=== PATIENT | female | born 1965 | race Caucasian/White ===

== ENCOUNTER → 2018-02-05 | Outpatient (CLI) | payer OTHER ==
[~2018-02-05] MED LIST: ALBU90OI INH; AMIT50 PO; AMLO5 PO; ASPI81CH PO; CEPH500 PO; CYCL10 PO; ERGO400 PO; FENO48 PO; GABA600 PO; HYDCHL25 PO; HYDR1TAB94 PO; Hair, Skin & N1 EACH PO; IBUP600 PO; LEVSOD150 PO; LISI20 PO; MELO7.5 PO; METCAR500 PO; METO100ER PO; Maxalt Mlt10 MG PO; PRAV20 PO; Percocet 10-321 EACH PO; Percocet 5-3251 EACH PO; Prozac20 MG PO; Silvadene20 GM TOP; TAMS.4ER PO; Valium5 MG PO; Zofran Odt4 MG PO
== END ==
LOC: LAB 10:22 → LAB SHORT 10:22
DX: N39.0 Urinary tract infection, site not specified (principal)
CPT/HCPCS: 87086

== ENCOUNTER 2018-02-12 16:54 | Emergency (ER) | payer OTHER ==
[~2018-02-12] VITALS: Ht 160 cm; Wt 163.3 kg
[2018-02-12] MEDS ORDERED: FURO40 PO (17:13)
[2018-02-12] MEDS ORDERED: POTCHL10ER PO (17:14)
[2018-02-12] MEDS ORDERED: Pyridium100 MG PO (17:14)
[2018-02-12] MEDS ORDERED: NITR100 (17:14)
[2018-02-12 17:46] LABS: BASOPHILS ABSOLUTE AUTO 0.07 K/mm3 (0.00-0.23); BASOPHILS PERCENT AUTO 1 % (0-2); EOSINOPHILS ABSOLUTE AUTO 0.37 K/mm3 (0.00-0.68); EOSINOPHILS PERCENT AUTO 4 % (0-6); Hematocrit 43.2 % (33.0-51.0); Hemoglobin 14.4 g/dL (11.5-16.0); IMMATURE GRAN ABSOLUTE AUTO 0.03 K/mm3 (0.00-0.10); IMMATURE GRAN PERCENT AUTO 0 % (0-1); LYMPHOCYTES ABSOLUTE AUTO 2.24 K/mm3 (0.84-5.20); LYMPHOCYTES PERCENT AUTO 21 % (21-46); MONOCYTES ABSOLUTE AUTO 0.94 K/mm3 (0.16-1.47); MONOCYTES PERCENT AUTO 9 % (4-13); Mean Corpuscular HGB 32.7 pg (26.0-34.0); Mean Corpuscular HGB Conc 33.3 g/dL (31.5-36.5); Mean Corpuscular Volume 98 fL (80-100); Mean Platelet Volume 9.7 fL (9.1-12.4); NEUTROPHILS ABSOLUTE AUTO 6.82 K/mm3 (1.96-9.15); NEUTROPHILS PERCENT AUTO 65 % (41-73); Platelet Count 303 K/mm3 (150-400); RDW Coefficient Variation 13.1 % (11.7-14.2); RDW Standard Deviation 47.7 fL (35.1-46.3); Red Blood Cell Count 4.41 M/mm3 (3.80-5.20); White Blood Cell Count 10.47 K/mm3 (4.00-11.30)
[2018-02-12 18:19] LABS: Albumin, Blood 3.8 g/dL (3.4-5.0); Bilirubin, Total 0.8 mg/dL (0.1-1.0); Bun/Creatinine Ratio 14.1 (12.0-20.0); Calcium, Blood 9.8 mg/dL (8.5-10.1); Creatinine, Blood 1.35 mg/dL (0.40-1.00); Globulin, Blood 3.9 g/dL (2.2-4.0); Total Protein, Blood 7.7 g/dL (6.4-8.2)
[2018-02-12 19:30] LABS: Source, Urine Clean Catch
[2018-02-12 19:39] LABS: Bilirubin, Urine Neg (Neg); Blood, Urine 4+ (Neg); Glucose Qualitative, Urine Neg (Neg); Ketones, Urine Neg (Neg); Leukocyte Esterase, Urine 3+ (Neg); Nitrite, Urine Pos (Neg); Protein, Urine Neg (Neg); Urobilinogen, Urine NORM (Normal)
[2018-02-12 19:50] LABS: Appearance, Urine Clear (Clear); Color, Urine Yellow (P-Yellow)
[2018-02-12 19:51] LABS: Bacteria Few /hpf; Red Blood Cells, Urine 25-50 /hpf (0-2); Squamous Epithelial Cells Few /hpf (Few)
== END 2018-02-12 21:27 | disposition short-term general hospital (02) ==
LOC: ER 16:54
PROVIDERS: Emergency Medicine; Internal Medicine
DX: N39.0 Urinary tract infection, site not specified (principal); N13.2 Hydronephrosis with renal and ureteral calculous obstruction; Z91.040 Latex allergy status; Z88.0 Allergy status to penicillin; Z91.048 Other nonmedicinal substance allergy status; Z88.8 Allergy status to other drugs, medicaments and biological substances; Z79.899 Other long term (current) drug therapy; I10 Essential (primary) hypertension; E03.9 Hypothyroidism, unspecified; Z87.891 Personal history of nicotine dependence
CPT/HCPCS: 36415; 74176; 80053; 81001; 83690; 85025; 87086; 96365; 96375; 96376; 99285-25; J0744; J1885; J2405; J3010

== ENCOUNTER 2018-08-30 13:00 | Emergency (ER) | payer OTHER ==
[~2018-08-30] VITALS: Ht 160 cm; Wt 152.9 kg
[~2018-08-30 13:00] MED LIST changes: +FURO40 PO; +NITR100; +POTCHL10ER PO; +Pyridium100 MG PO
[2018-08-30] MEDS ORDERED: Percocet 7.5-31 EACH PO (14:44)
[2018-08-30] MEDS ORDERED: ONDA4ODT MM (14:44)
== END 2018-08-30 14:50 | disposition home or self-care (01) ==
LOC: ER 13:00
DX: I10 Essential (primary) hypertension (principal); R51 Headache; E03.9 Hypothyroidism, unspecified; E78.5 Hyperlipidemia, unspecified; Z87.891 Personal history of nicotine dependence; Z79.899 Other long term (current) drug therapy
CPT/HCPCS: 70450; 96372; 99284-25; J0780; J1885; Q0163

== ENCOUNTER 2019-02-15 06:06 | Emergency (ER) | payer OTHER ==
[~2019-02-15] VITALS: Ht 160 cm; Wt 149.7 kg
[~2019-02-15 06:06] MED LIST changes: +ONDA4ODT MM; +Percocet 7.5-31 EACH PO
[2019-02-15 08:13] LABS: BASOPHILS ABSOLUTE AUTO 0.04 K/mm3 (0.00-0.23); BASOPHILS PERCENT AUTO 0 % (0-2); EOSINOPHILS ABSOLUTE AUTO 0.06 K/mm3 (0.00-0.68); EOSINOPHILS PERCENT AUTO 1 % (0-6); Hematocrit 46.4 % (33.0-51.0); Hemoglobin 15.1 g/dL (11.5-16.0); IMMATURE GRAN ABSOLUTE AUTO 0.05 K/mm3 (0.00-0.10); IMMATURE GRAN PERCENT AUTO 0 % (0-1); LYMPHOCYTES ABSOLUTE AUTO 1.41 K/mm3 (0.84-5.20); LYMPHOCYTES PERCENT AUTO 11 % (21-46); MONOCYTES ABSOLUTE AUTO 0.54 K/mm3 (0.16-1.47); MONOCYTES PERCENT AUTO 4 % (4-13); Mean Corpuscular HGB 31.3 pg (26.0-34.0); Mean Corpuscular HGB Conc 32.5 g/dL (31.5-36.5); Mean Corpuscular Volume 96 fL (80-100); Mean Platelet Volume 10.3 fL (9.1-12.4); NEUTROPHILS ABSOLUTE AUTO 10.97 K/mm3 (1.96-9.15); NEUTROPHILS PERCENT AUTO 84 % (41-73); Platelet Count 300 K/mm3 (150-400); RDW Coefficient Variation 12.7 % (11.7-14.2); RDW Standard Deviation 45.7 fL (35.1-46.3); Red Blood Cell Count 4.82 M/mm3 (3.80-5.20); White Blood Cell Count 13.07 K/mm3 (4.00-11.30)
[2019-02-15 08:46] LABS: Alanine Aminotransfer (ALT/SGP 35 U/L (12-78); Albumin, Blood 4.1 g/dL (3.4-5.0); Alk Phos 77 U/L (50-136); Anion Gap 7 mmol/L (6-16); Aspartate Aminotrans (AST/SGOT 30 U/L (12-37); Bilirubin, Total 0.5 mg/dL (0.1-1.0); Blood Urea Nitrogen 18 mg/dL (8-24); CO2, Blood 24 mmol/L (21-32); Calcium, Blood 9.3 mg/dL (8.5-10.1); Chloride, Blood 107 mmol/L (98-108); Globulin, Blood 4.2 g/dL (2.2-4.0); Glomerular Filtration Rate >60 (60-); Glucose, Blood 132 mg/dL (70-99); Potassium, Blood 3.9 mmol/L (3.5-5.5); Sodium, Blood 138 mmol/L (136-145); Total Protein, Blood 8.3 g/dL (6.4-8.2)
[2019-02-15 10:27] LABS: Source, Urine Clean Catch
[2019-02-15 10:30] LABS: Bilirubin, Urine Neg (Neg); Blood, Urine 1+ (Neg); Glucose Qualitative, Urine Neg (Neg); Ketones, Urine Neg (Neg); Leukocyte Esterase, Urine 2+ (Neg); Nitrite, Urine Neg (Neg); Protein, Urine Neg (Neg); Specific Gravity, Urine 1.015 (1.003-1.022); Urobilinogen, Urine NORM (Normal); pH, Urine 6.5 (5.0-8.0)
[2019-02-15 10:33] LABS: Appearance, Urine Clear (Clear); Color, Urine Yellow (P-Yellow)
[2019-02-15 10:39] LABS: Bacteria Few /hpf; Squamous Epithelial Cells Few /hpf (Few)
== END 2019-02-15 13:20 | disposition short-term general hospital (02) ==
LOC: ER 06:06
PROVIDERS: Emergency Medicine
DX: N13.2 Hydronephrosis with renal and ureteral calculous obstruction (principal); Z88.0 Allergy status to penicillin; Z91.040 Latex allergy status; Z88.8 Allergy status to other drugs, medicaments and biological substances; Z79.899 Other long term (current) drug therapy; I10 Essential (primary) hypertension; E03.9 Hypothyroidism, unspecified; E78.5 Hyperlipidemia, unspecified; Z87.891 Personal history of nicotine dependence
CPT/HCPCS: 36415; 74176; 80053; 81001; 83690; 85025; 87086; 96374; 96375; 96376; 99285-25; J1170; J1885; J2405

== ENCOUNTER 2019-02-21 18:02 | Emergency (ER) | payer OTHER ==
[~2019-02-21] VITALS: Ht 160 cm; Wt 149.7 kg
[2019-02-21 18:41] LABS: BASOPHILS ABSOLUTE AUTO 0.07 K/mm3 (0.00-0.23); BASOPHILS PERCENT AUTO 1 % (0-2); EOSINOPHILS ABSOLUTE AUTO 0.35 K/mm3 (0.00-0.68); EOSINOPHILS PERCENT AUTO 5 % (0-6); Hematocrit 40.9 % (33.0-51.0); Hemoglobin 13.4 g/dL (11.5-16.0); IMMATURE GRAN ABSOLUTE AUTO 0.02 K/mm3 (0.00-0.10); IMMATURE GRAN PERCENT AUTO 0 % (0-1); LYMPHOCYTES ABSOLUTE AUTO 2.87 K/mm3 (0.84-5.20); LYMPHOCYTES PERCENT AUTO 38 % (21-46); MONOCYTES ABSOLUTE AUTO 0.65 K/mm3 (0.16-1.47); MONOCYTES PERCENT AUTO 9 % (4-13); Mean Corpuscular HGB 31.7 pg (26.0-34.0); Mean Corpuscular HGB Conc 32.8 g/dL (31.5-36.5); Mean Corpuscular Volume 97 fL (80-100); Mean Platelet Volume 10.2 fL (9.1-12.4); NEUTROPHILS ABSOLUTE AUTO 3.69 K/mm3 (1.96-9.15); NEUTROPHILS PERCENT AUTO 48 % (41-73); Platelet Count 310 K/mm3 (150-400); RDW Coefficient Variation 12.9 % (11.7-14.2); RDW Standard Deviation 46.4 fL (35.1-46.3); Red Blood Cell Count 4.23 M/mm3 (3.80-5.20); White Blood Cell Count 7.65 K/mm3 (4.00-11.30)
[2019-02-21 18:42] LABS: Source, Urine Clean Catch
[2019-02-21 18:45] LABS: Bilirubin, Urine Neg (Neg); Blood, Urine 5+ (Neg); Glucose Qualitative, Urine Neg (Neg); Ketones, Urine Neg (Neg); Leukocyte Esterase, Urine 3+ (Neg); Nitrite, Urine Neg (Neg); Protein, Urine 3+ (Neg); Urobilinogen, Urine NORM (Normal)
[2019-02-21 18:59] LABS: Alanine Aminotransfer (ALT/SGP 21 U/L (12-78); Albumin, Blood 3.5 g/dL (3.4-5.0); Alk Phos 66 U/L (50-136); Anion Gap 6 mmol/L (6-16); Aspartate Aminotrans (AST/SGOT 23 U/L (12-37); Bilirubin, Total 0.4 mg/dL (0.1-1.0); Blood Urea Nitrogen 22 mg/dL (8-24); Bun/Creatinine Ratio 22.1 (12.0-20.0); CO2, Blood 27 mmol/L (21-32); Calcium, Blood 8.9 mg/dL (8.5-10.1); Chloride, Blood 108 mmol/L (98-108); Globulin, Blood 3.5 g/dL (2.2-4.0); Glomerular Filtration Rate >60 (60-); Glucose, Blood 86 mg/dL (70-99); Potassium, Blood 3.9 mmol/L (3.5-5.5); Sodium, Blood 141 mmol/L (136-145)
[2019-02-21 19:04] LABS: Appearance, Urine Cloudy (Clear); Color, Urine Yellow (P-Yellow)
[2019-02-21 19:10] LABS: Red Blood Cells, Urine TNTC /hpf (0-2)
[2019-02-21 19:11] LABS: Bacteria Few /hpf; Squamous Epithelial Cells Few /hpf (Few)
== END 2019-02-21 20:51 | disposition home or self-care (01) ==
LOC: ER 18:02
PROVIDERS: Physician Assistant
DX: R10.9 Unspecified abdominal pain (principal); Z91.040 Latex allergy status; Z88.0 Allergy status to penicillin; Z91.048 Other nonmedicinal substance allergy status; Z88.8 Allergy status to other drugs, medicaments and biological substances; Z79.899 Other long term (current) drug therapy; I10 Essential (primary) hypertension; E03.9 Hypothyroidism, unspecified; Z87.891 Personal history of nicotine dependence
CPT/HCPCS: 36415; 80053; 81001; 85025; 87086; 96374; 96375; 99284-25; A9270; J1885; J2405

== ENCOUNTER → 2019-03-06 | Outpatient (CLI) | payer OTHER ==
[2019-03-06 14:10] LABS: Source, Urine Voided
[2019-03-06 14:24] LABS: Bilirubin, Urine Neg (Neg); Blood, Urine 5+ (Neg); Glucose Qualitative, Urine Neg (Neg); Ketones, Urine 1+ (Neg); Leukocyte Esterase, Urine 3+ (Neg); Nitrite, Urine Neg (Neg); Protein, Urine 4+ (Neg); Urobilinogen, Urine NORM (Normal)
[2019-03-06 14:31] LABS: Appearance, Urine Bloody (Clear); Color, Urine Red (P-Yellow)
[2019-03-06 14:33] LABS: Bacteria Many /hpf; Red Blood Cells, Urine TNTC /hpf (0-2); Squamous Epithelial Cells Few /hpf (Few); White Blood Cells, Urine 50-100 /hpf (0-5)
== END ==
LOC: LAB 14:08 → LAB SHORT 14:08
PROVIDERS: Nurse Practitioner Family
DX: R30.0 Dysuria (principal)
CPT/HCPCS: 81001; 87086

== ENCOUNTER 2019-12-08 15:02 | Observation (INO) | payer OTHER ==
[~2019-12-08] VITALS: Ht 160 cm; Wt 151.0 kg
[~2019-12-08 15:02] MED LIST changes: -ALBU90OI INH; -AMLO5 PO; -ERGO400 PO; -FENO48 PO; -FURO40 PO; -LEVSOD150 PO; -LISI20 PO; -MELO7.5 PO; -METO100ER PO; -Maxalt Mlt10 MG PO; -POTCHL10ER PO; -PRAV20 PO; -Prozac20 MG PO
[2019-12-08 15:44] LABS: PCO2 Arterial 35.6 mmHg (35-45); PO2 Arterial 81.3 mmHg (80-100); pH Blood Arterial 7.44 (7.35-7.45)
[2019-12-08 16:00] LABS: BASOPHILS ABSOLUTE AUTO 0.06 K/mm3 (0.00-0.23); BASOPHILS PERCENT AUTO 1 % (0-2); EOSINOPHILS ABSOLUTE AUTO 0.32 K/mm3 (0.00-0.68); EOSINOPHILS PERCENT AUTO 5 % (0-6); Hematocrit 41.8 % (33.0-51.0); IMMATURE GRAN ABSOLUTE AUTO 0.02 K/mm3 (0.00-0.10); IMMATURE GRAN PERCENT AUTO 0 % (0-1); LYMPHOCYTES ABSOLUTE AUTO 2.08 K/mm3 (0.84-5.20); LYMPHOCYTES PERCENT AUTO 30 % (21-46); MONOCYTES ABSOLUTE AUTO 0.79 K/mm3 (0.16-1.47); MONOCYTES PERCENT AUTO 11 % (4-13); Mean Corpuscular HGB 32.1 pg (26.0-34.0); Mean Corpuscular HGB Conc 33.5 g/dL (31.5-36.5); Mean Corpuscular Volume 96 fL (80-100); Mean Platelet Volume 10.8 fL (9.1-12.4); NEUTROPHILS ABSOLUTE AUTO 3.75 K/mm3 (1.96-9.15); NEUTROPHILS PERCENT AUTO 53 % (41-73); Platelet Count 265 K/mm3 (150-400); RDW Coefficient Variation 11.9 % (11.7-14.2); RDW Standard Deviation 41.5 fL (35.1-46.3); Red Blood Cell Count 4.36 M/mm3 (3.80-5.20); White Blood Cell Count 7.02 K/mm3 (4.00-11.30)
[2019-12-08 16:34] LABS: Alanine Aminotransfer (ALT/SGP 75 U/L (12-78); Albumin, Blood 3.2 g/dL (3.4-5.0); Albumin/Globulin Ratio 0.8 (0.8-1.8); Alk Phos 67 U/L (50-136); Anion Gap 4 mmol/L (6-16); Aspartate Aminotrans (AST/SGOT 73 U/L (12-37); Bilirubin, Total 0.6 mg/dL (0.1-1.0); Blood Urea Nitrogen 19 mg/dL (8-24); CO2, Blood 25 mmol/L (21-32); Calcium, Blood 8.3 mg/dL (8.5-10.1); Chloride, Blood 112 mmol/L (98-108); Globulin, Blood 3.9 g/dL (2.2-4.0); Glomerular Filtration Rate >60 (60-); Glucose, Blood 78 mg/dL (70-99); Potassium, Blood 3.8 mmol/L (3.5-5.5); Sodium, Blood 141 mmol/L (136-145); Total Protein, Blood 7.1 g/dL (6.4-8.2); Troponin I <0.015 ng/mL (0.000-0.040)
[2019-12-08] MEDS ORDERED: ALBU90OI INH (17:46)
[2019-12-08] MEDS ORDERED: ESTRADIOL2 MG PO (17:47)
[2019-12-08] MEDS ORDERED: Aspir 8181 MG PO (17:47)
[2019-12-08] MEDS ORDERED: FLUOXETINE HCL60 MG PO (17:48)
[2019-12-08] MEDS ORDERED: FENO48 PO (17:48)
[2019-12-08] MEDS ORDERED: LEVSOD100 PO (17:48)
[2019-12-08] MEDS ORDERED: Neurontin400 MG PO ×2 (17:49→19:38)
[2019-12-08] MEDS ORDERED: LIOT5 PO (17:50)
[2019-12-08] MEDS ORDERED: ZESTRIL40 M2 PO (17:50)
[2019-12-08] MEDS ORDERED: Clear-Atadine10 MG PO (17:51)
[2019-12-08] MEDS ORDERED: METO100 PO (17:51)
[2019-12-08 17:52] LABS: International Normalized Ratio 0.97; Prothrombin Time Results 10.4 Sec (9.7-11.5)
[2019-12-08] MEDS ORDERED: MELO7.5 PO (17:52)
[2019-12-08] MEDS ORDERED: Pravachol40 MG PO (17:52)
[2019-12-08] MEDS ORDERED: VITAMIN D-32000 UNIT PO (17:52)
[2019-12-08] MEDS ORDERED: PROG100 PO (17:53)
[2019-12-08] MEDS ORDERED: AMLO5 PO (17:54)
[2019-12-08] MEDS ORDERED: FURO40 PO (17:54)
[2019-12-08] MEDS ORDERED: Flovent 110 MCG12 GM INH (17:55)
[2019-12-08] MEDS ORDERED: POTCHL20ER PO (17:55)
[2019-12-08] MEDS ORDERED: METFORMIN HCL500 M2 PO (17:56)
[2019-12-08] MEDS ORDERED: RIZATRIPTAN10 M3 PO (17:58)
[2019-12-08] MEDS ORDERED: TOPI25 PO (17:58)
[2019-12-08] MEDS ORDERED: Zanaflex4 MG PO (18:03)
[2019-12-09 01:34] LABS: Anion Gap 7 mmol/L (6-16); Blood Urea Nitrogen 16 mg/dL (8-24); Bun/Creatinine Ratio 20.2 (12.0-20.0); CO2, Blood 25 mmol/L (21-32); Calcium, Blood 8.5 mg/dL (8.5-10.1); Chloride, Blood 107 mmol/L (98-108); Creatinine, Blood 0.79 mg/dL (0.40-1.00); Glomerular Filtration Rate >60 (60-); Glucose, Blood 128 mg/dL (70-99); Potassium, Blood 3.7 mmol/L (3.5-5.5); Sodium, Blood 139 mmol/L (136-145)
--- NOTE | 2019-12-09 06:33 | NUR ---
SHIFT SUMMARY. ED ADMIT AT 2200./ STEPPED ONTO FLOOR AND ASSIST SELT TO BED. NO SOB AT THAT TIME. RA SAT WNL. DENIES CP OR EXERTIONAL DISCOMFORT. DIM BASES AND CLEAR LUNGS. REVIEWED SAFETY MEASURES AND TO CALL WHEN UP TO BR. REPORTS SEVERE HENRANDEZ AND TYLENLO NOT EFFECTVE. PLACED CALL TO GET IV PAIN MED DUE TO EXTREME NAUSEA. MED ORDERED FOR BOTH. SUBSIDING SLOWLY. X 1 RIGHT AFTER GIVEN , 50 ML OF YELLOW FLUID. LATER TOLERATED A FEW CHEERIOS. AND NO FURTHER NAUSEA. LATER REQUIRED 25 MCG. FOR HERNANDEZ ALTHOUGH SOME IMPROVEMENT. FINAL DOSE. REQUESTS MUSCLE RELAXER AND OFF TO SLEEP BY 0130. BP IMPROVED, SINCE ABLE TO TAKE PO MEDS FOR HTN. SR/ SB. NO FURTHER GI DISTRESS , SLEEPING SOUNDLY. REPORTS WEARING CPAP AT HER HOME FOR SLEEP AND REFUSED HOSPITAL CPAP AND FAMILY WILL BRING IN,. PLACED O2 ONAT 2L AND CONT SAT WNL
--- NOTE | 2019-12-09 08:20 | NUR ---
PCU DAYSHIFT - ASSUMED CARE PATIENT ALERT AND ORIENTED X4. RESP E/U AT REST ON 2 LPM NC WITH SP02 95%. PATIENT SBA TO BATHROOM - TOLERATES WELL. HEPARIN GTT RUNNING PER EMAR - VERIFIED DURING IN ROOM REPORT WITH ANTONIETTA NELSON IN TO SEE PATIENT AND PATIENT PLACED ON ISOLATION FOR COVID R/O. COVID SAMPLE OBTAINED AND SENT TO LAB. VSS. WILL CONTINUE TO MONITOR.
--- NOTE | 2019-12-09 18:37 | NUR ---
PCU DAYSHIFT SUMMARY PATIENT REMAINS ALERT AND ORIENTED X4 T/O SHIFT. INDEPENDENT IN ROOM. VSS. PATIENT ON ROOM AIR. COVID R/O SENT TO LAB. RESP E/U AT REST. NO ACUTE EVENTS NOTED. PATIENT REMAINED IN SINUS BLAS T/O SHIFT WITH RATE 48-62. HYPERTENSION NOTED - SEE PRN HTN'S MEDICATIONS. PATIENT REPORTS THAT SHE HAS CHRONIC PAIN AND CHRONIC HEADACHES AT HOME -TREATED PER EMAR. PATIENT AMBULATES WELL WITH STEADY GAIT. WILL CONTINUE TO MONITOR AND REPORT TO NOC SHIFT RN. CALL LIGHT W/I REACH. HEPARIN GTT RUNNING PER EMAR FOR PE'S.
--- NOTE | 2019-12-09 22:42 | NUR ---
aPTT 59.5 CALLED TO PHARMACY. NO NEW CHANGES AT THIS TIME.
--- NOTE | 2019-12-10 06:22 | NUR ---
SHIFT SUMMARY: PT AWAKE MOST OF NOC. VSS. ASYMPTOMATIC BRADYCARDIA. PT WITH NO COMPLAINTS EXCEPT FOR HER CONSTANT HEADACHE. PT FINALLY FELL ASLEEP APPRX 1 HOUR AGO BUT AWAKENS EASILY TO RN AT BEDSIDE. PT NOW RESTING. HEPARIN gtt CONTINUES AT 16.5 u/kg/hr. NEXT aPTT NOTED TO BE AT 1100 THIS AM. PT CALL LIGHT WITHIN REACH. WILL CONTINUE TO MONITOR. WILL REPORT OFF TO ONCOMING RN.
[2019-12-10 09:22] LABS: Bun/Creatinine Ratio 22.9 (12.0-20.0); Calcium, Blood 8.5 mg/dL (8.5-10.1); Creatinine, Blood 1.09 mg/dL (0.40-1.00); Potassium, Blood 3.9 mmol/L (3.5-5.5)
[2019-12-10] MEDS ORDERED: FURO40 PO (13:13)
[2019-12-10] MEDS ORDERED: PANT40 PO (13:13)
[2019-12-10] MEDS ORDERED: Klor-Con M1010 MEQ PO (13:14)
[2019-12-10] MEDS ORDERED: XARELTO15 MG PO (13:15)
--- NOTE | 2019-12-10 16:48 | NUR ---
DISCHARGE SUMMARY PT A&Ox4; CALM AND COOPERATIVE WITH CARE. PT RESTING IN BED DURING SHIFT. UP IND TO BATHROOM. PT DENIES PAIN; CHEST PAIN/PRESSURE; SOB AT REST OR WITH ACTIVITY; NASUEA AND DIZZINESS. PT ON HEPARIN GTT; TRANSITIONED TO XRAELTO THIS AFTERNOON. PT SINUS TO SINUS BLAS; ASSYMPTOMATIC. VSS. NO OTHER ACUTE CHANGES NOTED DURING SHIFT. PT EDUCATED ON COVID-19 ISOLATION; TO STAY HOME AND ISOLATED AWAY FROM OTHERS IN HOUSE HOLD. PT EDUCATED ON DISCHARGE INSTRUCTIONS, MEDICATIONS AND FOLLOW UP APPOINTMENTS. PRESCRIPTIONS CALLED INTO [facility] PER PT REQUEST. PT LEFT ROOM VIA WHEEL CHAIR AT 1540. PT PROVIDED WITH XARELTO COUPON PER SPARE HAND CARDING
--- NOTE | 2019-12-11 10:30 | NUR ---
LAB CALLED AND NOTIFIED THIS RN THAT COVID SAMPLE WAS REJECTED. DR NELSON NOT ON SERVICE TODAY. CALL TO PT'S PCP BRIAN POLLACK AT [facility] AND LEFT MESSAGE WITH TRAFFIC OFFICER THAT COVID SAMPLE WAS REJECTED AND PT WOULD NEED TO BE RE-TESTED IF INDICATED.
== END 2019-12-10 15:45 | disposition home or self-care (01) ==
LOC: ER 15:02 → PCU 15:03
PROVIDERS: Emergency Medicine; ADMIT Internal Medicine
DX: I26.99 Other pulmonary embolism without acute cor pulmonale (principal); J96.01 Acute respiratory failure with hypoxia; I16.0 Hypertensive urgency; E03.9 Hypothyroidism, unspecified; E66.01 Morbid (severe) obesity due to excess calories; I10 Essential (primary) hypertension; E78.5 Hyperlipidemia, unspecified; Z91.040 Latex allergy status; Z88.0 Allergy status to penicillin; Z88.8 Allergy status to other drugs, medicaments and biological substances; Z79.82 Long term (current) use of aspirin; Z79.899 Other long term (current) drug therapy; Z79.84 Long term (current) use of oral hypoglycemic drugs
CPT/HCPCS: 36415; 36600; 71046; 71260; 80048; 80053; 81240; 81241; 82803; 83880; 84484; 85025; 85300; 85303; 85306; 85379; 85610; 85730; 93005; 93010; 93306; 93970; 94640; 94664; 94760; 94762; 96365-59; 96375; 96375-59; 96376; 99285-25; A9270; A9270-GY; G0378; J0360; J1644; J1940; J2405; J2765; J3010; Q9967

== ENCOUNTER 2019-12-15 09:54 | Inpatient (IN) | payer OTHER ==
[~2019-12-15] VITALS: Ht 160 cm; Wt 146.3 kg
[~2019-12-15 09:54] MED LIST changes: +ALBU90OI INH; +AMLO5 PO; +Aspir 8181 MG PO; +Clear-Atadine10 MG PO; +ESTRADIOL2 MG PO; +FENO48 PO; +FLUOXETINE HCL60 MG PO; +FURO40 PO; +Flovent 110 MCG12 GM INH; +Klor-Con M1010 MEQ PO; +LEVSOD100 PO; +LIOT5 PO; +MELO7.5 PO; +METFORMIN HCL500 M2 PO; +METO100 PO; +Neurontin400 MG PO; +PANT40 PO; +POTCHL20ER PO; +PROG100 PO; +Pravachol40 MG PO; +RIZATRIPTAN10 M3 PO; +TOPI25 PO; +VITAMIN D-32000 UNIT PO; +XARELTO15 MG PO; +ZESTRIL40 M2 PO; +Zanaflex4 MG PO
[2019-12-15 11:06] LABS: BASOPHILS ABSOLUTE AUTO 0.08 K/mm3 (0.00-0.23); BASOPHILS PERCENT AUTO 1 % (0-2); EOSINOPHILS PERCENT AUTO 1 % (0-6); Hematocrit 36.7 % (33.0-51.0); Hemoglobin 11.7 g/dL (11.5-16.0); IMMATURE GRAN ABSOLUTE AUTO 0.06 K/mm3 (0.00-0.10); IMMATURE GRAN PERCENT AUTO 1 % (0-1); LYMPHOCYTES ABSOLUTE AUTO 1.99 K/mm3 (0.84-5.20); LYMPHOCYTES PERCENT AUTO 17 % (21-46); MONOCYTES ABSOLUTE AUTO 0.74 K/mm3 (0.16-1.47); MONOCYTES PERCENT AUTO 6 % (4-13); Mean Corpuscular HGB 31.5 pg (26.0-34.0); Mean Corpuscular HGB Conc 31.9 g/dL (31.5-36.5); NEUTROPHILS ABSOLUTE AUTO 8.87 K/mm3 (1.96-9.15); NEUTROPHILS PERCENT AUTO 75 % (41-73); Platelet Count 301 K/mm3 (150-400); RDW Coefficient Variation 12.1 % (11.7-14.2); RDW Standard Deviation 44.1 fL (35.1-46.3); Red Blood Cell Count 3.71 M/mm3 (3.80-5.20); White Blood Cell Count 11.84 K/mm3 (4.00-11.30)
[2019-12-15 11:15] LABS: Mean Corpuscular Volume 99 fL (80-100)
[2019-12-15 11:21] LABS: International Normalized Ratio 1.17; Prothrombin Time Results 12.4 Sec (9.7-11.5)
[2019-12-15 11:25] LABS: Albumin, Blood 3.2 g/dL (3.4-5.0); Albumin/Globulin Ratio 0.8 (0.8-1.8); Bilirubin, Total 0.4 mg/dL (0.1-1.0); Bun/Creatinine Ratio 72.6 (12.0-20.0); Calcium, Blood 8.8 mg/dL (8.5-10.1); Creatinine, Blood 1.13 mg/dL (0.40-1.00); Potassium, Blood 5.2 mmol/L (3.5-5.5); Total Protein, Blood 7.2 g/dL (6.4-8.2)
[2019-12-15] MEDS ORDERED: SPIRONOLACTONE25 MG PO (12:24)
[2019-12-15] MEDS ORDERED: Coumadin5 MG PO (12:25)
[2019-12-15] MEDS ORDERED: ENOXAPARIN150 MG/1 M SC (12:27)
--- NOTE | 2019-12-15 14:28 | NUR ---
pt arrived to the medical floor from the er via stretcher a/o x3, pleasant and cooperative, pt denied any pain/dyspnea, the pt was oriented to the room layout and call system, pt made NPO for procedure, call light in reach
--- NOTE | 2019-12-15 17:36 | NUR ---
12/15/19 1736 ALISA ZAMBRANO LATE ENTRY 2236 PT BROUGHT DIRECTLY TO OR TO PREPARE FOR PROCEDURE.
--- NOTE | 2019-12-15 17:49 | NUR ---
PT IS A/OX3, PLEASANT AND COOPERATIVE, THE PT IS UP IND, STAND-BY ASSIST, THE PT WAS TAKEN TO THE DAY SURGERY FOR UPPER SCOPE AT THIS TIME, PT APPEARS TO BE BREATHING EASILY ON RA, THE PT WAS MEDICATED FOR NAUSEA X1 SO FAR THIS SHIFT, THE PT DENIED DYSPNEA, PT IS TO BE TRANSFERED TO PCU S/P UPPER SCOPE
--- NOTE | 2019-12-15 18:06 | NUR ---
REPORT GIVEN TO RN IN PCU FOR PT TRANSFER
[2019-12-15 21:20] LABS: Hematocrit 35.3 % (33.0-51.0); Hemoglobin 11.4 g/dL (11.5-16.0)
[2019-12-16 04:41] LABS: BASOPHILS ABSOLUTE AUTO 0.06 K/mm3 (0.00-0.23); BASOPHILS PERCENT AUTO 1 % (0-2); EOSINOPHILS PERCENT AUTO 1 % (0-6); Hematocrit 32.5 % (33.0-51.0); IMMATURE GRAN ABSOLUTE AUTO 0.02 K/mm3 (0.00-0.10); IMMATURE GRAN PERCENT AUTO 0 % (0-1); LYMPHOCYTES ABSOLUTE AUTO 3.48 K/mm3 (0.84-5.20); LYMPHOCYTES PERCENT AUTO 36 % (21-46); MONOCYTES ABSOLUTE AUTO 0.87 K/mm3 (0.16-1.47); MONOCYTES PERCENT AUTO 9 % (4-13); Mean Corpuscular HGB 30.9 pg (26.0-34.0); Mean Corpuscular HGB Conc 30.8 g/dL (31.5-36.5); Mean Corpuscular Volume 100 fL (80-100); Mean Platelet Volume 11.3 fL (9.1-12.4); NEUTROPHILS ABSOLUTE AUTO 5.19 K/mm3 (1.96-9.15); NEUTROPHILS PERCENT AUTO 53 % (41-73); Platelet Count 304 K/mm3 (150-400); RDW Coefficient Variation 12.5 % (11.7-14.2); RDW Standard Deviation 46.5 fL (35.1-46.3); Red Blood Cell Count 3.24 M/mm3 (3.80-5.20); White Blood Cell Count 9.72 K/mm3 (4.00-11.30)
[2019-12-16 04:53] LABS: International Normalized Ratio 1.27; Prothrombin Time Results 13.4 Sec (9.7-11.5)
[2019-12-16 05:00] LABS: Albumin, Blood 3.1 g/dL (3.4-5.0); Albumin/Globulin Ratio 0.9 (0.8-1.8); Bilirubin, Total 0.3 mg/dL (0.1-1.0); Bun/Creatinine Ratio 54.2 (12.0-20.0); Calcium, Blood 8.3 mg/dL (8.5-10.1); Creatinine, Blood 1.92 mg/dL (0.40-1.00); Globulin, Blood 3.4 g/dL (2.2-4.0); Potassium, Blood 4.6 mmol/L (3.5-5.5); Total Protein, Blood 6.5 g/dL (6.4-8.2)
--- NOTE | 2019-12-16 06:35 | NUR ---
HOSPITALIST NOTIFIED HOSPITALIST NOTIFIED OF HYPOTENSION, DROP IN H&H AND PT C/O LEFT FLANK PAIN THIS AM. PT HAS SLOWLY HAD A DECREASE IN BP THROUGH THE NIGHT BUT HAS BEEN ASYMPTOMATIC. SHE STARTED TO C/O PAIN THIS AM AND STATED SHE WAS FEELING "FUZZY". A 500 ML NS BOLUS WAS ORDERED AND GIVEN, HGB WILL BE RECHECKED @ 0630 PER HOSPITALIST ORDERS. PT REMAINS AWAKE, ALERT & ORIENTED AT THIS TIME, ON ROOM AIR, RESP UNLABORED. DENIES STOMACH PAIN, STATES SHE IS MILDY NAUSEOUS.
--- NOTE | 2019-12-16 14:45 | NUR ---
History, Chart, Medications and Allergies reviewed before start of procedure. Patient confirms NPO status and agrees with scheduled surgery.
--- NOTE | 2019-12-16 15:07 | NUR ---
12/16/19 1507 [place] See Anesthesia record. MBite Block Placed 3-LEAD EKG REVIEWED WITH PHYSICIAN PRIOR TO START OF PROCEDURE. History, Chart, Medications and Allergies reviewed before start of procedure. Patient to ENDO 1 O2 VIA N/C INTACT THROUGHOUT SEDATION/PROCEDURE.
[2019-12-16 16:27] LABS: Hematocrit 30.6 % (33.0-51.0); Hemoglobin 9.6 g/dL (11.5-16.0)
--- NOTE | 2019-12-16 16:52 | NUR ---
PT WAS TAKEN FOR SECOND ENDOSCOPY TODAY AT 1445 PT CAME BACK AROUND 1600 PROCEDURE WENT GOOD CAUTERIZATION DONE ON THE SAME ULCER THAT THEY CLIPPED YESTERDAY. BP SYSTOLIC STILL LOW ON THE 90'S-100'S, THE REST OF THE VITALS STABLE. PT TO RESUME ON CLEAR LIQUID DIET. WILL MONITOR
--- NOTE | 2019-12-16 17:37 | NUR ---
SHIFT SUMMARY: PT WENT FOR A SECOND ENDOSCOPY TODAY, CAUTERIZATION DONE ON THE ULCER SPOT THEY CLIPPED YESTERDAY, PT RESUME ON CLEAR LIQUID DIET. DR BABIN CONSULTED ABOUT RESTARTING HEPARIN DRIP, PROVIDER ALSO WANTED PT TO START ON COUMADIN ORDER FOR WARFARIN CONSULT MADE FOR PHARMACY. PT TOLERATED THE PROCEDURE, BP SYSTOLIC ON THE 90'S, PT ASYMPTOMATIC, NS RUNNING @50MLS/HR. NO SOB/ NOTED, PT SATS ABOVE 94% ON ROOMAIR, THE REST OF THE VITALS STABLE. NO REPORTED BOWELS TODAY, PT HAS BEEN AMBULATING TO THE [facility] 1[facility], NO ACTIVE BLEEDING NOTED, CURRENT HGB IS AT 9.6 WAS AT 10.0 THIS MORNING. PT CURRENTLY RESTING IN BED CALL LIGHTS WITHIN REACH WILL MONITOR
[2019-12-16 17:50] LABS: Bun/Creatinine Ratio 44.6 (12.0-20.0); Calcium, Blood 8.2 mg/dL (8.5-10.1); Creatinine, Blood 2.31 mg/dL (0.40-1.00); Potassium, Blood 4.4 mmol/L (3.5-5.5)
[2019-12-17 01:18] LABS: BASOPHILS ABSOLUTE AUTO 0.04 K/mm3 (0.00-0.23); BASOPHILS PERCENT AUTO 1 % (0-2); EOSINOPHILS ABSOLUTE AUTO 0.12 K/mm3 (0.00-0.68); EOSINOPHILS PERCENT AUTO 2 % (0-6); Hematocrit 25.2 % (33.0-51.0); Hemoglobin 7.9 g/dL (11.5-16.0); IMMATURE GRAN ABSOLUTE AUTO 0.04 K/mm3 (0.00-0.10); IMMATURE GRAN PERCENT AUTO 1 % (0-1); LYMPHOCYTES ABSOLUTE AUTO 2.81 K/mm3 (0.84-5.20); LYMPHOCYTES PERCENT AUTO 38 % (21-46); MONOCYTES ABSOLUTE AUTO 0.62 K/mm3 (0.16-1.47); MONOCYTES PERCENT AUTO 8 % (4-13); Mean Corpuscular HGB 31.5 pg (26.0-34.0); Mean Corpuscular HGB Conc 31.3 g/dL (31.5-36.5); Mean Corpuscular Volume 100 fL (80-100); Mean Platelet Volume 10.9 fL (9.1-12.4); NEUTROPHILS ABSOLUTE AUTO 3.73 K/mm3 (1.96-9.15); NEUTROPHILS PERCENT AUTO 51 % (41-73); Platelet Count 219 K/mm3 (150-400); RDW Coefficient Variation 12.6 % (11.7-14.2); RDW Standard Deviation 46.4 fL (35.1-46.3); Red Blood Cell Count 2.51 M/mm3 (3.80-5.20); White Blood Cell Count 7.36 K/mm3 (4.00-11.30)
[2019-12-17 01:35] LABS: International Normalized Ratio 1.56; Prothrombin Time Results 16.3 Sec (9.7-11.5)
--- NOTE | 2019-12-17 06:32 | NUR ---
SHIFT SUMMARY NO ACUTE CHANGES NOTED THROUGH THE NIGHT. VSS, RESP UNLABORED, ON ROOM AIR, DENIES SOB/CP, PAIN MANAGED PER EMAR. PT IS TOLERATING SMALL AMOUNTS OF CLEAR LIQUIDS WITH NO NAUSEA, MILD GAS PAINS, NO STOOLS REPORTED, VOIDING WNL. HEPARIN GTT INFUSING @ 16 UNITS/KG PER ORDERS. CALL LIGHT IN REACH. WCTM.
[2019-12-17 09:53] LABS: Albumin, Blood 2.8 g/dL (3.4-5.0); Bilirubin, Total 0.2 mg/dL (0.1-1.0); Bun/Creatinine Ratio 44.3 (12.0-20.0); Calcium, Blood 7.8 mg/dL (8.5-10.1); Creatinine, Blood 2.1 mg/dL (0.40-1.00); Globulin, Blood 2.9 g/dL (2.2-4.0); Potassium, Blood 4.2 mmol/L (3.5-5.5); Total Protein, Blood 5.7 g/dL (6.4-8.2)
[2019-12-17 10:07] LABS: BASOPHILS ABSOLUTE AUTO 0.05 K/mm3 (0.00-0.23); BASOPHILS PERCENT AUTO 1 % (0-2); EOSINOPHILS ABSOLUTE AUTO 0.15 K/mm3 (0.00-0.68); EOSINOPHILS PERCENT AUTO 2 % (0-6); Hematocrit 25.7 % (33.0-51.0); IMMATURE GRAN ABSOLUTE AUTO 0.02 K/mm3 (0.00-0.10); IMMATURE GRAN PERCENT AUTO 0 % (0-1); LYMPHOCYTES ABSOLUTE AUTO 1.87 K/mm3 (0.84-5.20); LYMPHOCYTES PERCENT AUTO 30 % (21-46); MONOCYTES ABSOLUTE AUTO 0.48 K/mm3 (0.16-1.47); MONOCYTES PERCENT AUTO 8 % (4-13); Mean Corpuscular HGB 31.5 pg (26.0-34.0); Mean Corpuscular HGB Conc 31.1 g/dL (31.5-36.5); Mean Corpuscular Volume 101 fL (80-100); Mean Platelet Volume 11.2 fL (9.1-12.4); NEUTROPHILS ABSOLUTE AUTO 3.73 K/mm3 (1.96-9.15); NEUTROPHILS PERCENT AUTO 59 % (41-73); Platelet Count 216 K/mm3 (150-400); RDW Coefficient Variation 12.6 % (11.7-14.2); RDW Standard Deviation 46.8 fL (35.1-46.3); Red Blood Cell Count 2.54 M/mm3 (3.80-5.20)
[2019-12-17 13:32] LABS: Hematocrit 26.2 % (33.0-51.0); Hemoglobin 8.3 g/dL (11.5-16.0)
--- NOTE | 2019-12-17 15:12 | NUR ---
PT CURRENTLY OFF TO IMAGING AT THIS TIME FOR GI BLEED SCAN. PT WAS TRANSPORTED AROUND 1350.
[2019-12-17 19:31] LABS: Hematocrit 28.8 % (33.0-51.0); Hemoglobin 9.1 g/dL (11.5-16.0)
--- NOTE | 2019-12-17 19:41 | NUR ---
SHIFT SUMMARY: PT ALERT AND ORIENTED X4. PT IS HERE FOR GI BLEED, LAST HGB DRAWN AT 1300 WAS AT 8.3, DR JOSEPH ORDERED GI BLEED SCAN TEST CAME BACK NEGATIVE FOR GI BLEED, DR NELSON WAS CONSULTED ORDER TO RESTART HEPARIN DRIP AND COUMADIN. HEPARIN DRIP RUNNING AT 16U/KG/HR. PT NO REPORTED BOWEL FOR THE SHIFT, NO ACTIVE BLEEDING NOTED. H&H ORDERED Q6HR X 3. PT STILL ON CLEAR LIQUID DIET, VITALS HAS BEEN STABLE. PT C/O BACK PAIN AND CONCERNED ABOUT GABAPENTIN BEING DC'D PT DISCUSSED THE ISSUE WTIH THE PROVIDER SINCE PT HAD ACUTE KIDNEY INJURY, ORDER FOR LIDOCAINE PATCH FOR A MEANTIME. PT'S PAIN HAS BEEN MANAGED WITH TYLENOL AND REPOSITIONING. PT CURRENTLY NOW RESTING IN BED CALL LIGHTS WITHIN REACH WILL MONITOR
[2019-12-18 01:18] LABS: Hematocrit 25.3 % (33.0-51.0)
[2019-12-18 01:25] LABS: International Normalized Ratio 1.92; Prothrombin Time Results 19.8 Sec (9.7-11.5)
--- NOTE | 2019-12-18 05:18 | NUR ---
SHIFT SUMMARY PT A&O; PLEASANT & COMPLIANT W/ CARE; HEP GTT @ 16U/KG/HR; VSS; NSR NOTED ON TELE; PT DENIES CHEST PAIN; O2 SATS >93 ON RA; NEW IV START TO R WRIST AND PROTONIX GTT INFUSING; NS INFUSING @ 50ML/HR; PT C/O CHRONIC BACK PAIN; HEAT PAD OFFERED; PT REFUSED; TYLENOL GIVEN PER EMAR; SBA FOR BATHROOM PRIVILEGES FOR CORD MANAGEMENT; PT SLEPT WELL IN BETWEEN INTERVENTIONS; DENIES NEEDS AT THIS TIME; CALL LIGHT IN REACH; BED IN LOWEST POSITION; WILL CONTINUE TO MONITOR CLOSELY UNTIL HAND OFF DAY SHIFT RN.
--- NOTE | 2019-12-18 08:39 | NUR ---
AM NOTE... ASSUMED CARE OF PT APROX 0700. PT IS A&Ox4 AND SBA TO GET UP. PT WAS ADMITTED FOR GIB, H&H HAS BEEN STABLE AFTER GI PROCEDURES. PER PROVIDER ADVANCE DIET TOLERATED FROM CLEAR LIQUID TO REGULAR. PT'S VS STABLE AT THIS TIME. L/S CLEAR T/O ON RA. NO EDEMA NOTED ON ASSESSMENT. PT HAS HEPARIN GTT RUNNING PER ORDERS, VERIFIED INDEPENDENTLY WITH LEXII FROST. PROTONIX GTT D/C'D TO IV PUSH BID. CALL LIGHT IN REACH WILL CONTINUE TO MONITOR.
[2019-12-18 09:26] LABS: Hematocrit 25.6 % (33.0-51.0); Hemoglobin 8.2 g/dL (11.5-16.0); Mean Corpuscular HGB 31.9 pg (26.0-34.0); Mean Corpuscular Volume 100 fL (80-100); Mean Platelet Volume 11.2 fL (9.1-12.4); Platelet Count 211 K/mm3 (150-400); RDW Coefficient Variation 12.4 % (11.7-14.2); RDW Standard Deviation 45.3 fL (35.1-46.3); Red Blood Cell Count 2.57 M/mm3 (3.80-5.20); White Blood Cell Count 5.27 K/mm3 (4.00-11.30)
[2019-12-18 10:01] LABS: Bun/Creatinine Ratio 47.1 (12.0-20.0); Creatinine, Blood 1.21 mg/dL (0.40-1.00); Potassium, Blood 4.1 mmol/L (3.5-5.5)
--- NOTE | 2019-12-18 13:52 | NUR ---
PT COMFORTABLE IN BED AT THIS TIME POST TRANSFER FROM PCU. HEPARIN INFUSION RATE VERIFIED WITH ATIYA BONE RN WELL. BED IN LOW POSITION, CALL LIGHT WITHIN REACH.
--- NOTE | 2019-12-18 17:36 | NUR ---
SHIFT SUMMARY PT AXO, PLEASANT AND COOPERATIVE WITH CARE. HEPARIN INFUSING PER EMAR AND VERIFIED ON ARRIVAL WITH ANOTHER NURSE. VSS. PT COMPLAINS OF CHRONIC BACK PAIN, MEDICATED PER EMAR AND HEATING PAD APPLIED. PT DENIES WEAKNESS, STATES SHE FEELS COMFORTABLE AMBULATING TO BATHROOM INDEPENDENTLY AND STATES THAT SHE WILL CALL FOR ASSISTANCE IF SHE FEELS DIZZY OR UNSURE. PT CONTINUES TO HAVE BLACK LIQUID STOOL, DR AWARE. BED IN LOW POSITION, CALL LIGHT WITHIN REACH.
--- NOTE | 2019-12-18 19:00 | NUR ---
ASSUMED CARE RECEIVED REPORT FROM SANTOSH CARTAGENA. ASSUMED CARE OF PT. RESTING COMFORTABLY AT THIS TIME, NO S/S ACUTE DISTRESS NOTED. DENIES NEEDS AT THIS TIME. CALL LIGHT, POSSESSIONS IN REACH, BED IN LOWEST POSITION, HEPARIN DRIP VERIFIED, ONGOING. WILL CONTINUE TO MONITOR.
[2019-12-19 01:08] LABS: Hemoglobin 7.8 g/dL (11.5-16.0); Mean Corpuscular HGB 31.8 pg (26.0-34.0); Mean Corpuscular HGB Conc 32.5 g/dL (31.5-36.5); Mean Corpuscular Volume 98 fL (80-100); Mean Platelet Volume 10.6 fL (9.1-12.4); Platelet Count 206 K/mm3 (150-400); RDW Coefficient Variation 12.4 % (11.7-14.2); RDW Standard Deviation 43.8 fL (35.1-46.3); Red Blood Cell Count 2.45 M/mm3 (3.80-5.20); White Blood Cell Count 5.94 K/mm3 (4.00-11.30)
[2019-12-19 01:22] LABS: Bun/Creatinine Ratio 35.5 (12.0-20.0); Calcium, Blood 8.4 mg/dL (8.5-10.1); Creatinine, Blood 1.38 mg/dL (0.40-1.00); Potassium, Blood 4.4 mmol/L (3.5-5.5)
[2019-12-19 01:27] LABS: International Normalized Ratio 2.22; Prothrombin Time Results 22.7 Sec (9.7-11.5)
--- NOTE | 2019-12-19 02:20 | NUR ---
0220 CRITICAL APTT RECEIVED AND REPORTED TO DR. BRO. RESULT ALSO REPORTED TO PHARMACY. PHARMACY INSTRUCTED THIS RN TO STOP HEPARIN DRIP FOR ONE HOUR. UPDATED PT ON LAB RESULTS AND PLAN OF TX. INDICATED UNDERSTANDING. WILL CONTINUE TO MONITOR.
--- NOTE | 2019-12-19 04:33 | NUR ---
[address] BRO REGARDING PT'S H&H RESULTS. ORDERS RECEIVED AND ENTERED INTO [employer]. WILL CONTINUE TO MONITOR PT FOR S/S BLEEDING.
--- NOTE | 2019-12-19 04:39 | NUR ---
SHIFT SUMMARY PT RESTING COMFORTABLY AT THIS TIME, NO S/S ACUTE DISTRESS NOTED. HEPARIN DRIP RESTARTED AT 0330 PER PHARMACY, PT DENIES PRESENCE OF BLACK, TARRY STOOLS, ABD SOFT, NON-DISTENDED, NON-RIGID. STATES SHE'S PASSING GAS. BPS STABLE. REPEAT AM H&H SCHEDULED, AWAITING RESULTS. PT DENIES ANY NEEDS AT THIS TIME, CALL LIGHT, POSSESSIONS IN REACH, BED IN LOWEST POSITION. WILL CONTINUE TO MONITOR UNTIL DAY RN ASSUMES CARE.
[2019-12-19 07:42] LABS: Hematocrit 26.5 % (33.0-51.0); Hemoglobin 8.7 g/dL (11.5-16.0)
[2019-12-19] MEDS ORDERED: XARELTO15 MG PO (11:46)
== END 2019-12-19 12:13 | disposition home or self-care (01) | DRG 377 ==
LOC: ER 09:54 → PCU 09:55 → MEDS 09:55 → ER 09:55 → MEDS 14:05 → PCU 18:29 → MEDS 12-18 13:07 → ENPENDDIS 12-19 10:00 → MEDS 12-19 12:13
PROVIDERS: Emergency Medicine; Family Medicine; Internal Medicine; Internal Medicine Gastroenterology; ADMIT Internal Medicine
PROC: 0W3P8ZZ Control Bleeding in Gastrointestinal Tract, Via Natural or Artificial Opening Endoscopic (ICD-10-PCS; 2019-12-15)
PROC: 3E0G8GC Introduction of Other Therapeutic Substance into Upper GI, Via Natural or Artificial Opening Endoscopic (ICD-10-PCS; principal; 2019-12-15 17:30)
PROC: 3E0G8GC Introduction of Other Therapeutic Substance into Upper GI, Via Natural or Artificial Opening Endoscopic (ICD-10-PCS; 2019-12-16)
PROC: 0D568ZZ Destruction of Stomach, Via Natural or Artificial Opening Endoscopic (ICD-10-PCS; 2019-12-16)
DX: K25.4 Chronic or unspecified gastric ulcer with hemorrhage (principal); I26.99 Other pulmonary embolism without acute cor pulmonale; Z68.43 Body mass index [BMI] 50.0-59.9, adult; N17.9 Acute kidney failure, unspecified; K22.11 Ulcer of esophagus with bleeding; Z79.82 Long term (current) use of aspirin; E03.9 Hypothyroidism, unspecified; E78.5 Hyperlipidemia, unspecified; Z86.711 Personal history of pulmonary embolism; Z87.891 Personal history of nicotine dependence; E66.01 Morbid (severe) obesity due to excess calories; I10 Essential (primary) hypertension; I95.9 Hypotension, unspecified; N28.89 Other specified disorders of kidney and ureter
CPT/HCPCS: 36415; 76770; 78278; 80048; 80053; 85014; 85018; 85025; 85027; 85610; 85730; 86850; 86900; 86901; 94640; 94760; 96361; 96365; 96375; 96376; 99285-25; A9270; A9560; C9113; G0378; J0171; J1644; J2370; J2405; J2704; J7030; J7120

== ENCOUNTER 2020-07-30 07:43 | Day surgery (SDC) | payer OTHER ==
[~2020-07-30] VITALS: Ht 157.5 cm; Wt 145.9 kg
[~2020-07-30 07:43] MED LIST changes: +Coumadin5 MG PO; +ENOXAPARIN150 MG/1 M SC; +SPIRONOLACTONE25 MG PO
[2020-07-30] MEDS ORDERED: AMLODIPINE BESYL5 MG PO (09:10)
[2020-07-30] MEDS ORDERED: DESVENLAFAXINE100 M3 PO (09:10)
[2020-07-30] MEDS ORDERED: LOSA50 PO (09:10)
--- NOTE | 2020-07-30 09:32 | NUR ---
PT VIA FROM [facility] TO [facility]. PT IS ABLE TO STAND AND AMBULATE UNASSISTED. PT WEIGHED AND VOIDED. PT IS PLEASENT, AWKAE AND ALERT. PT DENIES ANY FOOD INTAKE SINCE 07/28/20 @ 1300. PT PLACED IN GOWN, VSS ON RA. IV AND LR STARTED. PT RIDE HOME IS JESENIA, PHONE NUMBER ON CHART. Ambulatory in Day Surgery Patient states colon prep results clear. Lungs clear T/O to Auscultation. History, Chart, Medications and Allergies reviewed before start of procedure. Patient confirms NPO status and agrees with scheduled surgery. Patient States Post-Procedure ride home has been arranged.
--- NOTE | 2020-07-30 09:35 | NUR ---
07/30/20 0935 Promise Mena History, Chart, Medications and Allergies reviewed before start of procedure.Patient confirms NPO status and agrees with scheduled surgery.3-LEAD EKG REVIEWED WITH PHYSICIAN PRIOR TO START OF PROCEDURE.MONITOR INTACT WITH CONTINUOUS PULSE OXIMETRY AND INTERMITTENT BP.O2 VIA N/C INTACT THROUGHOUT SEDATION/PROCEDURE. See Anesthesia record
--- NOTE | 2020-07-30 10:52 | NUR ---
Patient up to Ambulate independently. Gait steady. Discharge instructions reviewed with patient. Patient verbalizes understanding. Copy given to patient to take home. Patient States Post-Procedure ride home has been arranged. Discharged via wheelchair to private car for ride home.
== END 2020-07-30 10:41 | disposition home or self-care (01) ==
LOC: ORSCMMR 07:43 → ORD 09:15 → ORSCMMR 09:15
PROVIDERS: Internal Medicine Gastroenterology
PROC: 0DB78ZX Excision of Stomach, Pylorus, Via Natural or Artificial Opening Endoscopic, Diagnostic (ICD-10-PCS; principal; 2020-07-30 09:15)
PROC: 0DBL8ZX Excision of Transverse Colon, Via Natural or Artificial Opening Endoscopic, Diagnostic (ICD-10-PCS; principal; 2020-07-30 09:15)
DX: K27.9 Peptic ulcer, site unspecified, unspecified as acute or chronic, without hemorrhage or perforation (principal); Z12.11 Encounter for screening for malignant neoplasm of colon; D12.3 Benign neoplasm of transverse colon; I10 Essential (primary) hypertension; K21.9 Gastro-esophageal reflux disease without esophagitis; E66.01 Morbid (severe) obesity due to excess calories; Z68.43 Body mass index [BMI] 50.0-59.9, adult; Z79.4 Long term (current) use of insulin; Z79.899 Other long term (current) drug therapy
CPT/HCPCS: 88305; 88342; J2405; J2704; J7120

== ENCOUNTER 2020-09-14 09:41 | Day surgery (SDC) | payer OTHER ==
[~2020-09-14] VITALS: Ht 157.5 cm; Wt 151.0 kg
[~2020-09-14 09:41] MED LIST changes: +AMLODIPINE BESYL5 MG PO; +DESVENLAFAXINE100 M3 PO; +FLOVENT HFA12 GM INH; -Flovent 110 MCG12 GM INH; +LOSA50 PO; +VITAMIN D310 MC4 PO; +ZYRTEC10 M2 PO
[2020-09-14] MEDS ORDERED: FLONASE ALLERG9.9 M2 (10:49)
[2020-09-14] MEDS ORDERED: PREG50 PO (10:50)
[2020-09-14] MEDS ORDERED: FURO40 PO (10:51)
[2020-09-14] MEDS ORDERED: POTA10T PO (10:52)
[2020-09-14] MEDS ORDERED: Norco 7.5-3251 EACH PO (10:52)
--- NOTE | 2020-09-14 15:05 | NUR ---
ASSUMED CARE OF PT. PT DROWSY, BUT ROUSES TO VERBAL STIMULI, ANSWERS QUESTIONS APPROPRIATELY; DENIES PAIN POST PROCEDURE. MONITOR SR 60'S, B/P 165/93, SPO2 96% RA. L FLANK SITE NO SWELLING/HEMATOMA, DRAINAGE BAG IN PLACE WITH STAY FIX DRSG DRAINING LIGHT BROWN FLUID.
--- NOTE | 2020-09-14 16:07 | NUR ---
PT DRESSED, IV DC'D INTACT, DRAINBAG DRESSING STABLE, PT SITTING NOW AND EATING LUNCH, BOYFRIEND CALLED FOR PICKUP
--- NOTE | 2020-09-14 16:30 | NUR ---
PATIENT DISCHARGED HOME A&O. VERBALIZED UNDERSTANDING OF DISCHARGE INSTRUCTIONS AND PRECAUTIONS. DRAINAGE BAG AND TUBING INTACT. PATIENT TRANSFERED TO CAR VIA WHEELCHAIR. BOYFRIEND ACCOMPANIED PATIENT HOME.
== END 2020-09-14 16:30 | disposition home or self-care (01) ==
LOC: MHTC 09:41 → ORSCMMR 09:42 → MHTC 10:12
DX: S37.012A Minor contusion of left kidney, initial encounter (principal); F32.9 Major depressive disorder, single episode, unspecified; E78.5 Hyperlipidemia, unspecified; I10 Essential (primary) hypertension; E03.9 Hypothyroidism, unspecified; Z88.0 Allergy status to penicillin; Z88.5 Allergy status to narcotic agent; Z91.040 Latex allergy status; Z91.030 Bee allergy status; X58.XXXA Exposure to other specified factors, initial encounter
CPT/HCPCS: 49405; 76937; 87070; 87075; 87205; 99152; 99153; A9270; C1729; C1769; C1894; J2250; J3010; J7030; Q9967

== ENCOUNTER → 2021-03-11 | Outpatient (CLI) | payer OTHER ==
[~2021-03-11] MED LIST changes: +FLONASE ALLERG9.9 M2; +Norco 7.5-3251 EACH PO; +POTA10T PO; +PREG50 PO
[2021-03-11 18:58] LABS: Appearance, Urine Hazy (Clear); Bilirubin, Urine Neg (Neg); Blood, Urine 2+ (Neg); Color, Urine Yellow (P-Yellow); Glucose Qualitative, Urine Neg (Neg); Ketones, Urine Neg (Neg); Leukocyte Esterase, Urine 3+ (Neg); Nitrite, Urine Neg (Neg); Protein, Urine 2+ (Neg); Specific Gravity, Urine 1.025 (1.003-1.022); Urobilinogen, Urine NORM (Normal)
[2021-03-11 19:19] LABS: White Blood Cells, Urine 50-100 /hpf (0-5)
[2021-03-11 19:20] LABS: Bacteria Many /hpf; Red Blood Cells, Urine 0-2 /hpf (0-2); Squamous Epithelial Cells Many /hpf (Few)
== END ==
LOC: LAB 17:26 → LAB SHORT 17:26
PROVIDERS: Nurse Practitioner Family
DX: R30.9 Painful micturition, unspecified (principal); Z88.0 Allergy status to penicillin; Z88.6 Allergy status to analgesic agent; Z91.048 Other nonmedicinal substance allergy status; Z91.040 Latex allergy status; Z91.030 Bee allergy status; Z88.8 Allergy status to other drugs, medicaments and biological substances
CPT/HCPCS: 81001; 87086; 87147

== ENCOUNTER 2021-04-28 21:02 | Inpatient (IN) | payer OTHER ==
[~2021-04-28] VITALS: Ht 157.5 cm; Wt 154.2 kg
[2021-04-28 22:27] LABS: BASOPHILS ABSOLUTE AUTO 0.08 K/mm3 (0.00-0.23); BASOPHILS PERCENT AUTO 1 % (0-2); EOSINOPHILS ABSOLUTE AUTO 0.26 K/mm3 (0.00-0.68); EOSINOPHILS PERCENT AUTO 4 % (0-6); Hematocrit 42.9 % (33.0-51.0); Hemoglobin 14.2 g/dL (11.5-16.0); IMMATURE GRAN ABSOLUTE AUTO 0.01 K/mm3 (0.00-0.10); IMMATURE GRAN PERCENT AUTO 0 % (0-1); LYMPHOCYTES PERCENT AUTO 35 % (21-46); MONOCYTES ABSOLUTE AUTO 0.66 K/mm3 (0.16-1.47); MONOCYTES PERCENT AUTO 9 % (4-13); Mean Corpuscular HGB 31.3 pg (26.0-34.0); Mean Corpuscular HGB Conc 33.1 g/dL (31.5-36.5); Mean Corpuscular Volume 95 fL (80-100); Mean Platelet Volume 10.2 fL (9.1-12.4); NEUTROPHILS ABSOLUTE AUTO 3.87 K/mm3 (1.96-9.15); NEUTROPHILS PERCENT AUTO 52 % (41-73); Platelet Count 288 K/mm3 (150-400); RDW Coefficient Variation 12.8 % (11.7-14.2); RDW Standard Deviation 44.7 fL (35.1-46.3); Red Blood Cell Count 4.54 M/mm3 (3.80-5.20); White Blood Cell Count 7.48 K/mm3 (4.00-11.30)
[2021-04-28 22:47] LABS: Alanine Aminotransfer (ALT/SGP 23 U/L (12-78); Albumin/Globulin Ratio 1.1 (0.8-1.8); Alk Phos 74 U/L (50-136); Anion Gap 6 mmol/L (6-16); Aspartate Aminotrans (AST/SGOT 22 U/L (12-37); Bilirubin, Total 0.4 mg/dL (0.1-1.0); Blood Urea Nitrogen 32 mg/dL (8-24); Bun/Creatinine Ratio 27.8 (12.0-20.0); CO2, Blood 23 mmol/L (21-32); Calcium, Blood 8.9 mg/dL (8.5-10.1); Chloride, Blood 113 mmol/L (98-108); Creatinine, Blood 1.15 mg/dL (0.40-1.00); Globulin, Blood 3.8 g/dL (2.2-4.0); Glomerular Filtration Rate 49 (60-); Glucose, Blood 126 mg/dL (70-99); Potassium, Blood 3.6 mmol/L (3.5-5.5); Sodium, Blood 142 mmol/L (136-145); Total Protein, Blood 7.8 g/dL (6.4-8.2)
[2021-04-28 23:33] LABS: Source, Urine Voided
[2021-04-28 23:35] LABS: Bilirubin, Urine Neg (Neg); Blood, Urine Neg (Neg); Glucose Qualitative, Urine Neg (Neg); Ketones, Urine Neg (Neg); Leukocyte Esterase, Urine 3+ (Neg); Nitrite, Urine Neg (Neg); Protein, Urine 1+ (Neg); Urobilinogen, Urine NORM (Normal)
[2021-04-28 23:47] LABS: Appearance, Urine Clear (Clear); Color, Urine Yellow (P-Yellow)
[2021-04-28 23:48] LABS: Bacteria Few /hpf; Red Blood Cells, Urine Not Seen /hpf (0-2); Squamous Epithelial Cells Few /hpf (Few); White Blood Cells, Urine 50-100 /hpf (0-5)
[2021-04-29 00:33] LABS: Troponin I <0.015 ng/mL (0.000-0.040)
[2021-04-29 02:18] LABS: SARS-Cov-2 (COVID-19) PCR, MMC NEGATIVE (NEGATIVE)
[2021-04-29 04:55] LABS: BASOPHILS ABSOLUTE AUTO 0.08 K/mm3 (0.00-0.23); BASOPHILS PERCENT AUTO 1 % (0-2); EOSINOPHILS ABSOLUTE AUTO 0.26 K/mm3 (0.00-0.68); EOSINOPHILS PERCENT AUTO 4 % (0-6); Hematocrit 40.9 % (33.0-51.0); Hemoglobin 13.5 g/dL (11.5-16.0); IMMATURE GRAN ABSOLUTE AUTO 0.02 K/mm3 (0.00-0.10); IMMATURE GRAN PERCENT AUTO 0 % (0-1); LYMPHOCYTES ABSOLUTE AUTO 2.12 K/mm3 (0.84-5.20); LYMPHOCYTES PERCENT AUTO 30 % (21-46); MONOCYTES ABSOLUTE AUTO 0.65 K/mm3 (0.16-1.47); MONOCYTES PERCENT AUTO 9 % (4-13); Mean Corpuscular HGB 30.9 pg (26.0-34.0); Mean Corpuscular Volume 94 fL (80-100); Mean Platelet Volume 10.4 fL (9.1-12.4); NEUTROPHILS PERCENT AUTO 56 % (41-73); Platelet Count 270 K/mm3 (150-400); RDW Coefficient Variation 12.9 % (11.7-14.2); RDW Standard Deviation 44.3 fL (35.1-46.3); Red Blood Cell Count 4.37 M/mm3 (3.80-5.20); White Blood Cell Count 7.13 K/mm3 (4.00-11.30)
[2021-04-29 05:36] LABS: Albumin, Blood 3.8 g/dL (3.4-5.0); Albumin/Globulin Ratio 1.1 (0.8-1.8); Bilirubin, Total 0.5 mg/dL (0.1-1.0); Bun/Creatinine Ratio 29.2 (12.0-20.0); Calcium, Blood 8.8 mg/dL (8.5-10.1); Creatinine, Blood 1.06 mg/dL (0.40-1.00); Globulin, Blood 3.5 g/dL (2.2-4.0); Potassium, Blood 3.6 mmol/L (3.5-5.5); Total Protein, Blood 7.3 g/dL (6.4-8.2)
--- NOTE | 2021-04-29 13:55 | NUR ---
pt complained of pain, called and she said to write for the amount pt states she takes which is 800 tid will write and provide
--- NOTE | 2021-04-29 17:27 | NUR ---
a+o, eager to go home, she says says there is nothing he can do to improve her condition, so suggests she consider going home, no orders, pt remains in poorly controled pain, call light in reach, saline locked, rm air, will continue to monitor and treat until share report with noc nurse
--- NOTE | 2021-04-30 04:14 | NUR ---
SHIFT SUMMARY FULL CODE PT ADMITTED FOR PYELONEPHRITIS. C/O FLANK PAIN DURING THIS SHIFT. MEDICATED. AAOX4. ABLBE TO MAKE NEEDS KNOWN. NO SIGNIFICANT CHANGES DURING THIS SHIFT
[2021-04-30 05:04] LABS: Albumin, Blood 3.5 g/dL (3.4-5.0); Anion Gap 7 mmol/L (6-16); Blood Urea Nitrogen 25 mg/dL (8-24); Bun/Creatinine Ratio 25.5 (12.0-20.0); CO2, Blood 22 mmol/L (21-32); Calcium, Blood 8.5 mg/dL (8.5-10.1); Chloride, Blood 112 mmol/L (98-108); Creatinine, Blood 0.98 mg/dL (0.40-1.00); Glomerular Filtration Rate 59 (60-); Glucose, Blood 119 mg/dL (70-99); Phosphorus, Blood 3.1 mg/dL (2.5-4.9); Potassium, Blood 3.3 mmol/L (3.5-5.5); Sodium, Blood 141 mmol/L (136-145)
--- NOTE | 2021-04-30 18:34 | NUR ---
a+o with waves of back pain, have been using the available medication to control the pain, still waiting on acceptable reselution to original problem but with unavailability of urologist pt is frusterated, medicated and treated as prescribed, call light in reach, rm air, fluids infusing with no s/sx of infection or infiltration, pt has enjoyed the [place] dramas she has observed from her vantage point, will continue to monitor and treat until share bsr with noc nurse
--- NOTE | 2021-05-01 04:21 | NUR ---
SHIFT SUMMARY FULL CODE PT ADMITTED FOR PYELONEPHRITIS. C/O FLANK PAIN THROUGHTOUT SHIFT. MEDICATED. AAOX4. NO DISTRESS NOTED. NO SIGNIFICANT CHANGES DURING THIS SHIFT.
[2021-05-01 04:34] LABS: BASOPHILS ABSOLUTE AUTO 0.08 K/mm3 (0.00-0.23); BASOPHILS PERCENT AUTO 1 % (0-2); EOSINOPHILS ABSOLUTE AUTO 0.24 K/mm3 (0.00-0.68); EOSINOPHILS PERCENT AUTO 4 % (0-6); Hematocrit 39.7 % (33.0-51.0); Hemoglobin 13.1 g/dL (11.5-16.0); IMMATURE GRAN ABSOLUTE AUTO 0.02 K/mm3 (0.00-0.10); IMMATURE GRAN PERCENT AUTO 0 % (0-1); LYMPHOCYTES ABSOLUTE AUTO 1.99 K/mm3 (0.84-5.20); LYMPHOCYTES PERCENT AUTO 35 % (21-46); MONOCYTES ABSOLUTE AUTO 0.55 K/mm3 (0.16-1.47); MONOCYTES PERCENT AUTO 10 % (4-13); Mean Corpuscular HGB 31.4 pg (26.0-34.0); Mean Corpuscular Volume 95 fL (80-100); Mean Platelet Volume 10.3 fL (9.1-12.4); NEUTROPHILS ABSOLUTE AUTO 2.89 K/mm3 (1.96-9.15); NEUTROPHILS PERCENT AUTO 50 % (41-73); Platelet Count 256 K/mm3 (150-400); RDW Coefficient Variation 13.2 % (11.7-14.2); RDW Standard Deviation 46.7 fL (35.1-46.3); Red Blood Cell Count 4.17 M/mm3 (3.80-5.20); White Blood Cell Count 5.77 K/mm3 (4.00-11.30)
[2021-05-01] MEDS ORDERED: Acetaminophen650 M1 (11:27)
[2021-05-01] MEDS ORDERED: DOCU100 PO (11:28)
[2021-05-01] MEDS ORDERED: MIRALAX17 GM PO (11:32)
[2021-05-01] MEDS ORDERED: Percocet 5-3251 EACH PO (11:32)
[2021-05-01] MEDS ORDERED: SENN187 PO (11:34)
[2021-05-01] MEDS ORDERED: VISBIOME 112.51 EACH PO (11:35)
[2021-05-01] MEDS ORDERED: CEPH500 PO (12:02)
[2021-05-01] MEDS ORDERED: TIZA4 PO (12:04)
--- NOTE | 2021-05-01 13:01 | NUR ---
discharged: left with family, taken to N exit in by staff, reviewed medication, discharge instructions, medication [facility]
== END 2021-05-01 12:54 | disposition home or self-care (01) | DRG 690 ==
LOC: ER 21:02 → MEDS 04-29 02:19 → ER 04-29 02:56 → MEDS 04-29 04:47
PROVIDERS: Emergency Medicine; Internal Medicine; Physician Assistant; ADMIT Internal Medicine
DX: N30.00 Acute cystitis without hematuria (principal); Z68.44 Body mass index [BMI] 60.0-69.9, adult; N28.89 Other specified disorders of kidney and ureter; Z20.822 Contact with and (suspected) exposure to COVID-19; B95.1 Streptococcus, group B, as the cause of diseases classified elsewhere; E66.9 Obesity, unspecified; G89.4 Chronic pain syndrome; I10 Essential (primary) hypertension; F32.9 Major depressive disorder, single episode, unspecified; E03.9 Hypothyroidism, unspecified; K59.00 Constipation, unspecified; E78.5 Hyperlipidemia, unspecified; Z88.0 Allergy status to penicillin; Z88.5 Allergy status to narcotic agent; Z91.09 Other allergy status, other than to drugs and biological substances; Z91.040 Latex allergy status; Z79.899 Other long term (current) drug therapy; Z86.711 Personal history of pulmonary embolism; Z87.442 Personal history of urinary calculi; Z87.891 Personal history of nicotine dependence; Z90.49 Acquired absence of other specified parts of digestive tract; Z98.890 Other specified postprocedural states; Z91.030 Bee allergy status
CPT/HCPCS: 36415; 71046; 74170; 74176; 76705; 80053; 80069; 81001; 83690; 83880; 84484; 85025; 87086; 87147; 93005; 93010; 96365; 96375; 99285-25; A9270; J0360; J0696; J1650; J1885; J2405; J3010; J7030; J7050; Q9967; U0004

== ENCOUNTER → 2021-12-08 | Outpatient (CLI) | payer OTHER ==
[~2021-12-08] MED LIST changes: +Acetaminophen650 M1; +DOCU100 PO; +MIRALAX17 GM PO; +SENN187 PO; +TIZA4 PO; +VISBIOME 112.51 EACH PO
== END | disposition home or self-care (01) ==
LOC: LAB 13:17 → LAB SHORT 13:17
DX: N39.0 Urinary tract infection, site not specified (principal)
CPT/HCPCS: 87086

== ENCOUNTER → 2022-04-21 | Outpatient (CLI) | payer OTHER | END | disposition home or self-care (01) | LOC: LAB 17:08 → LAB SHORT 17:08 | DX: R30.0 Dysuria (principal) | CPT/HCPCS: 87086 ==

== ENCOUNTER 2022-07-21 12:30 | Emergency (ER) | payer OTHER ==
[~2022-07-21] VITALS: Ht 157.5 cm; Wt 147.9 kg
[2022-07-21 13:57] LABS: BASOPHILS ABSOLUTE AUTO 0.06 K/mm3 (0.00-0.23); BASOPHILS PERCENT AUTO 1 % (0-2); EOSINOPHILS ABSOLUTE AUTO 0.33 K/mm3 (0.00-0.68); EOSINOPHILS PERCENT AUTO 4 % (0-6); Hematocrit 42.1 % (33.0-51.0); Hemoglobin 14.2 g/dL (11.5-16.0); IMMATURE GRAN ABSOLUTE AUTO 0.02 K/mm3 (0.00-0.10); IMMATURE GRAN PERCENT AUTO 0 % (0-1); LYMPHOCYTES ABSOLUTE AUTO 2.62 K/mm3 (0.84-5.20); LYMPHOCYTES PERCENT AUTO 33 % (21-46); MONOCYTES ABSOLUTE AUTO 0.56 K/mm3 (0.16-1.47); MONOCYTES PERCENT AUTO 7 % (4-13); Mean Corpuscular HGB 31.4 pg (26.0-34.0); Mean Corpuscular HGB Conc 33.7 g/dL (31.5-36.5); Mean Corpuscular Volume 93 fL (80-100); Mean Platelet Volume 10.1 fL (9.1-12.4); NEUTROPHILS ABSOLUTE AUTO 4.33 K/mm3 (1.96-9.15); NEUTROPHILS PERCENT AUTO 55 % (41-73); Platelet Count 332 K/mm3 (150-400); RDW Coefficient Variation 13.2 % (11.7-14.2); RDW Standard Deviation 45.7 fL (35.1-46.3); Red Blood Cell Count 4.52 M/mm3 (3.80-5.20); White Blood Cell Count 7.92 K/mm3 (4.00-11.30)
[2022-07-21 13:59] LABS: Albumin, Blood 3.9 g/dL (3.4-5.0); Bilirubin, Total 0.4 mg/dL (0.1-1.0); Bun/Creatinine Ratio 22.6 (12.0-20.0); Creatinine, Blood 0.93 mg/dL (0.40-1.00); Globulin, Blood 3.8 g/dL (2.2-4.0); Total Protein, Blood 7.7 g/dL (6.4-8.2)
[2022-07-21] MEDS ORDERED: TIZA4 PO (15:47)
== END 2022-07-21 17:58 | disposition home or self-care (01) ==
LOC: ER 12:30
PROVIDERS: Physician Assistant
DX: R07.89 Other chest pain (principal); M54.9 Dorsalgia, unspecified; Z91.040 Latex allergy status; Z91.048 Other nonmedicinal substance allergy status; Z91.030 Bee allergy status; Z88.0 Allergy status to penicillin; Z88.5 Allergy status to narcotic agent; Z88.8 Allergy status to other drugs, medicaments and biological substances; Z79.899 Other long term (current) drug therapy; I10 Essential (primary) hypertension; E03.9 Hypothyroidism, unspecified; Z87.891 Personal history of nicotine dependence
CPT/HCPCS: 36415; 71046; 71260; 80053; 84484; 85025; 85379; Q9967

== ENCOUNTER → 2022-10-27 | Outpatient (CLI) | payer OTHER ==
[2022-10-27 16:47] LABS: Source, Urine Clean Catch
[2022-10-27 17:41] LABS: Appearance, Urine Clear (Clear); Bilirubin, Urine Neg (Neg); Blood, Urine Neg (Neg); Color, Urine Amber (P-Yellow); Glucose Qualitative, Urine Neg (Neg); Ketones, Urine Neg (Neg); Leukocyte Esterase, Urine Neg (Neg); Nitrite, Urine Neg (Neg); Protein, Urine 2+ (Neg); Urobilinogen, Urine NORM (Normal)
[2022-10-27 17:51] LABS: Bacteria Few /hpf; Squamous Epithelial Cells Few /hpf (Few)
== END | disposition home or self-care (01) ==
LOC: LAB SHORT 16:46 → LAB 16:46
PROVIDERS: Nurse Practitioner Family
DX: R30.0 Dysuria (principal)
CPT/HCPCS: 81001

== ENCOUNTER → 2023-04-06 | Outpatient (CLI) | payer OTHER | LOC: LAB 17:16 → LAB SHORT 17:16 | DX: R30.0 Dysuria (principal) | CPT/HCPCS: 87086 ==

== ENCOUNTER 2023-05-01 12:33 | Emergency (ER) | payer OTHER ==
[~2023-05-01] VITALS: Ht 157.5 cm; Wt 149.7 kg
[2023-05-01 13:50] LABS: BASOPHILS ABSOLUTE AUTO 0.06 K/mm3 (0.00-0.23); BASOPHILS PERCENT AUTO 1 % (0-2); EOSINOPHILS ABSOLUTE AUTO 0.15 K/mm3 (0.00-0.68); EOSINOPHILS PERCENT AUTO 2 % (0-6); Hematocrit 43.3 % (33.0-51.0); Hemoglobin 14.8 g/dL (11.5-16.0); IMMATURE GRAN ABSOLUTE AUTO 0.03 K/mm3 (0.00-0.10); IMMATURE GRAN PERCENT AUTO 0 % (0-1); LYMPHOCYTES ABSOLUTE AUTO 0.41 K/mm3 (0.84-5.20); LYMPHOCYTES PERCENT AUTO 5 % (21-46); MONOCYTES ABSOLUTE AUTO 0.49 K/mm3 (0.16-1.47); MONOCYTES PERCENT AUTO 6 % (4-13); Mean Corpuscular HGB 32.2 pg (26.0-34.0); Mean Corpuscular HGB Conc 34.2 g/dL (31.5-36.5); Mean Corpuscular Volume 94 fL (80-100); Mean Platelet Volume 10.6 fL (9.1-12.4); NEUTROPHILS ABSOLUTE AUTO 6.66 K/mm3 (1.96-9.15); NEUTROPHILS PERCENT AUTO 85 % (41-73); Platelet Count 174 K/mm3 (150-400); RDW Coefficient Variation 12.5 % (11.7-14.2); RDW Standard Deviation 43.6 fL (35.1-46.3)
[2023-05-01 14:09] LABS: Albumin, Blood 3.5 g/dL (3.4-5.0); Albumin/Globulin Ratio 0.8 (0.8-1.8); Bilirubin, Total 0.9 mg/dL (0.1-1.0); Bun/Creatinine Ratio 13.6 (12.0-20.0); Creatinine, Blood 1.18 mg/dL (0.40-1.00); Globulin, Blood 4.2 g/dL (2.2-4.0); Potassium, Blood 3.5 mmol/L (3.5-5.5); Total Protein, Blood 7.7 g/dL (6.4-8.2)
[2023-05-01 15:29] LABS: Source, Urine Clean Catch
[2023-05-01 15:31] LABS: Appearance, Urine Clear (Clear); Bilirubin, Urine Neg (Neg); Blood, Urine 2+ (Neg); Color, Urine Amber (P-Yellow); Glucose Qualitative, Urine Neg (Neg); Ketones, Urine 1+ (Neg); Leukocyte Esterase, Urine 2+ (Neg); Nitrite, Urine Neg (Neg); Protein, Urine 3+ (Neg); Urobilinogen, Urine 1+ (Normal)
[2023-05-01 15:37] LABS: Bacteria Mod /hpf; Squamous Epithelial Cells Few /hpf (Few)
[2023-05-01] MEDS ORDERED: ONDA4ODT MM (17:17)
[2023-05-01] MEDS ORDERED: BENZ100A PO (17:17)
[2023-05-01 17:30] VITALS: BP 175/91
[2023-05-02] MEDS ORDERED: ZYRTEC10 M2 PO (22:28)
== END 2023-05-01 18:00 | disposition home or self-care (01) ==
LOC: ER 12:33
PROVIDERS: Emergency Medicine; Physician Assistant
DX: R10.9 Unspecified abdominal pain (principal); I10 Essential (primary) hypertension; E03.9 Hypothyroidism, unspecified; Z79.899 Other long term (current) drug therapy; Z79.890 Hormone replacement therapy; Z91.040 Latex allergy status; Z88.0 Allergy status to penicillin; Z91.030 Bee allergy status; Z88.5 Allergy status to narcotic agent; Z88.8 Allergy status to other drugs, medicaments and biological substances; Z87.891 Personal history of nicotine dependence
CPT/HCPCS: 71046; 74176; 80053; 81001; 83880; 84484; 85025; 87086; 93005; 93010; 96361; 96374; 96375; 99285-25; J1885; J2405; J7030

== ENCOUNTER → 2025-05-05 | Outpatient (CLI) | payer SELFPAY ==
[~2025-05-05] MED LIST changes: +BENZ100A PO; +IBUP800 PO
[2025-05-05 12:58] LABS: BASOPHILS ABSOLUTE AUTO 0.06 K/mm3 (0.00-0.23); BASOPHILS PERCENT AUTO 1 % (0-2); EOSINOPHILS ABSOLUTE AUTO 0.26 K/mm3 (0.00-0.68); EOSINOPHILS PERCENT AUTO 4 % (0-6); Hematocrit 42.3 % (33.0-51.0); Hemoglobin 14.2 g/dL (11.5-16.0); IMMATURE GRAN ABSOLUTE AUTO 0.02 K/mm3 (0.00-0.10); IMMATURE GRAN PERCENT AUTO 0 % (0-1); LYMPHOCYTES ABSOLUTE AUTO 2.34 K/mm3 (0.84-5.20); LYMPHOCYTES PERCENT AUTO 32 % (21-46); MONOCYTES ABSOLUTE AUTO 0.60 K/mm3 (0.16-1.47); MONOCYTES PERCENT AUTO 8 % (4-13); Mean Corpuscular HGB Conc 33.6 g/dL (31.5-36.5); Mean Corpuscular Volume 96 fL (80-100); NEUTROPHILS ABSOLUTE AUTO 3.98 K/mm3 (1.96-9.15); NEUTROPHILS PERCENT AUTO 55 % (41-73); NRBC ABSOLUTE 0.00 K/mm3 (0.00-0.02); NRBC Auto 0.0 /100 WBC (0.0-0.2); Platelet Count 305 K/mm3 (150-400); RDW Coefficient Variation 13.5 % (11.7-14.2); RDW Standard Deviation 47.9 fL (35.1-46.3)
[2025-05-05 13:18] LABS: Alanine Aminotransfer (ALT/SGP 21.0 U/L (12-78); Albumin, Blood 4.0 g/dL (3.4-5.0); Albumin/Globulin Ratio 1.1 (0.8-1.8); Anion Gap 12.0 mmol/L (3-11); Aspartate Aminotrans (AST/SGOT 18.0 U/L (12-37); Bilirubin, Total 0.9 mg/dL (0.1-1.0); Blood Urea Nitrogen 25.0 mg/dL (8-24); CO2, Blood 28.0 mmol/L (21-32); Calcium, Blood 9.2 mg/dL (8.5-10.1); Chloride, Blood 103.0 mmol/L (98-108); Creatinine, Blood 1.58 mg/dL (0.40-1.00); Globulin, Blood 3.5 g/dL (2.2-4.0); Glucose, Blood 150.0 mg/dL (70-99); Magnesium, Blood 1.8 mg/dL (1.6-2.4); Potassium, Blood 3.7 mmol/L (3.5-5.5); Sodium, Blood 139.0 mmol/L (136-145); Thyroid Stimulating Hormone 38.863 uIU/mL (0.360-4.800); Total Protein, Blood 7.5 g/dL (6.4-8.2)
== END ==
LOC: LAB SHORT 12:54 → LAB 12:54
PROVIDERS: Family Medicine
DX: I10 Essential (primary) hypertension (principal)
CPT/HCPCS: 80053; 83735; 84439; 84443; 85025

== ENCOUNTER 2025-06-01 17:51 | Emergency (ER) | payer OTHER ==
[~2025-06-01] VITALS: Ht 157.5 cm; Wt 147.9 kg
[2025-06-01 18:34] LABS: BASOPHILS ABSOLUTE AUTO 0.07 K/mm3 (0.00-0.23); BASOPHILS PERCENT AUTO 1 % (0-2); EOSINOPHILS ABSOLUTE AUTO 0.19 K/mm3 (0.00-0.68); EOSINOPHILS PERCENT AUTO 3 % (0-6); Hematocrit 42.2 % (33.0-51.0); Hemoglobin 14.3 g/dL (11.5-16.0); IMMATURE GRAN ABSOLUTE AUTO 0.01 K/mm3 (0.00-0.10); IMMATURE GRAN PERCENT AUTO 0 % (0-1); LYMPHOCYTES ABSOLUTE AUTO 2.20 K/mm3 (0.84-5.20); LYMPHOCYTES PERCENT AUTO 30 % (21-46); MONOCYTES ABSOLUTE AUTO 0.63 K/mm3 (0.16-1.47); MONOCYTES PERCENT AUTO 9 % (4-13); Mean Corpuscular HGB Conc 33.9 g/dL (31.5-36.5); Mean Corpuscular Volume 95 fL (80-100); NEUTROPHILS ABSOLUTE AUTO 4.30 K/mm3 (1.96-9.15); NEUTROPHILS PERCENT AUTO 58 % (41-73); NRBC ABSOLUTE 0.00 K/mm3 (0.00-0.02); NRBC Auto 0.0 /100 WBC (0.0-0.2); Platelet Count 294 K/mm3 (150-400); RDW Coefficient Variation 12.6 % (11.7-14.2); RDW Standard Deviation 44.8 fL (35.1-46.3)
[2025-06-01 18:52] LABS: Alanine Aminotransfer (ALT/SGP 18.0 U/L (12-78); Albumin, Blood 4.0 g/dL (3.4-5.0); Albumin/Globulin Ratio 1.1 (0.8-1.8); Anion Gap 9.0 mmol/L (3-11); Aspartate Aminotrans (AST/SGOT 12.0 U/L (12-37); Bilirubin, Total 0.7 mg/dL (0.1-1.0); Blood Urea Nitrogen 24.0 mg/dL (8-24); CO2, Blood 25.0 mmol/L (21-32); Calcium, Blood 9.3 mg/dL (8.5-10.1); Chloride, Blood 109.0 mmol/L (98-108); Creatinine, Blood 1.09 mg/dL (0.40-1.00); Globulin, Blood 3.7 g/dL (2.2-4.0); Glucose, Blood 83.0 mg/dL (70-99); Potassium, Blood 3.7 mmol/L (3.5-5.5); Sodium, Blood 139.0 mmol/L (136-145); Total Protein, Blood 7.7 g/dL (6.4-8.2)
[2025-06-01 21:00] LABS: Source, Urine Clean Catch
[2025-06-01] MEDS ORDERED: HYDROmorphone HCl/Pf 1MG SYR IM ONE (21:05)
[2025-06-01 21:11] LABS: Bilirubin, Urine Neg (Neg); Color, Urine Yellow (P-Yellow); Glucose Qualitative, Urine Neg (Neg); Ketones, Urine Neg (Neg); Leukocyte Esterase, Urine 3+ (Neg); Protein, Urine 2+ (Neg); Specific Gravity, Urine 1.020 (1.003-1.022); Urobilinogen, Urine 1+ (Normal)
[2025-06-01 21:20] LABS: White Blood Cells, Urine 50-100 /hpf (0-5)
[2025-06-02] MEDS ORDERED: Diazepam 5 MG / ML 2ML SYR IV ONE (01:50)
[2025-06-02] MEDS ORDERED: HYDROmorphone HCl/Pf 1MG SYR IV ONE ×2 (08:10→11:10)
[2025-06-02] MEDS ORDERED: Ketorolac Tromethamine 30mg Vial IV ONE (08:10)
[2025-06-02] MEDS ORDERED: OXYC5 PO (14:51)
[2025-06-02] MEDS ORDERED: DELTASONE20 MG PO (14:51)
[2025-06-02 15:30] VITALS: BP 148/98
== END 2025-06-02 15:45 | disposition home or self-care (01) ==
LOC: ER 17:51
PROVIDERS: Physician Assistant
DX: M47.26 Other spondylosis with radiculopathy, lumbar region (principal); M48.061 Spinal stenosis, lumbar region without neurogenic claudication; M43.16 Spondylolisthesis, lumbar region; M19.011 Primary osteoarthritis, right shoulder; N20.0 Calculus of kidney; E03.9 Hypothyroidism, unspecified; I10 Essential (primary) hypertension; E78.5 Hyperlipidemia, unspecified; Z86.711 Personal history of pulmonary embolism; Z88.0 Allergy status to penicillin; Z88.5 Allergy status to narcotic agent; Z88.8 Allergy status to other drugs, medicaments and biological substances; Z91.040 Latex allergy status; Z91.030 Bee allergy status; Z91.048 Other nonmedicinal substance allergy status; Z79.890 Hormone replacement therapy; Z79.899 Other long term (current) drug therapy
CPT/HCPCS: 70450; 72131; 72148; 73030; 80053; 81001; 85025; 87086; 87147; 93005; 93010; 96372; 96374; 96375; 99285-25; A9270; J1171; J1885; J2919; J3360